=== PATIENT | female | born 1945 | race Caucasian/White ===

== ENCOUNTER 2016-06-16 16:11 | Emergency (ER) | payer MEDICARE ==
[~2016-06-16] VITALS: Ht 162.6 cm; Wt 64.0 kg
[~2016-06-16 16:11] MED LIST: ALBUTEROL2 PUFFS/17 IN; ASPIRIN 81MG TA81 MG PO; FLONASE 50 MCG16 GM; LIPITOR40 MG PO; LORAZEPAM1 MG/TABLE PO; NEURONTIN 100100 MG PO; PATADAY 2.5 ML2.5 ML OP; PATANASE0.6% NS; SYNTHROID0.025 MG PO; TESSALON PERLE100 MG PO
--- NOTE | 2016-06-16 16:31 | Emergency Room Report ---
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 Clinical Suspician of Infection? Mental Status: Sepsis Risk: Have you (or family members/close friends) recently traveled outside the [place]? If Yes, where/when: Have you had exposure to infectious disease within the past month? TB? Other? Specify: Vomiting and diarrhea for three days, dry heaves, some relief with Phenergan this afternoon. Mouth feels dry. Overall weak and exhausted, no fever. No blood from above or below; has cramping but no keara pain; hx of choly. Experiencing chills and myalgias. ALLERGIES Coded Allergies: acetaminophen (NAUSEA/VOMITING 05/05/15) hyoscyamine (I-RASH 05/05/15) menthol (NA-NAUSEA 05/05/15) methyl salicylate (NA-NAUSEA 05/05/15) Home Medications Reported Medications Atorvastatin Calcium (Atorvastatin) 40 MG PO DAILY ASPIRIN (Aspirin) 81 MG PO DAILY Omeprazole (Omeprazole 40MG) 40 MG PO DAILY #30 Levothyroxine Sodium (Synthroid 0.025MG) 0.0125 MG PO DAILY History Medical History General Angina: No DE: No Hypertension? No Hyperlipidemia? No CHF? No COPD? No Asthma? No CVA? No Seizures? No Diabetes? No GB Disease: No MRSA? No TB? No Cancer? No Immunization Hx DT/Tetanus 1-4 YRS Surgical Hx Previous Surgery?Y Tubal Ligation PARTIAL HYSTERECTOMY GALLBLADDER Family History Family Hx Diabetes No CAD Yes Hypertension Yes Hyperlipidemia No Cancer Yes TB Yes Social History Alcohol Alcohol: No Review of Systems All Other Systems Reviewed and Negative Gastrointestinal see HPI Physical Exam Vital Signs Vital Signs Date Time Temp Pulse Resp B/P Pulse O2 O2 Flow FiO2 Ox Delivery Rate 06/16 1616 98.8 96 20 126/73 98 General Appearance normal appearance, WD/WN, no apparent distress Eye Exam - bilateral eye normal exam, bilateral eye PERRL Ear, Nose, Throat hearing grossly normal, normal ENT inspection Neck normal inspection, non-tender, supple, full range of motion Respiratory Status Yes: trachea midline, chest symmetrical, non tender chest, non productive cough. No: respiratory distress, tender on palpation, use of accessory muscles, pain on inspiration, pain on expiration, productive cough. Lung Sounds bilateral: normal breath sounds, lungs clear. Cardiovascular normal exam, regular rate/rhythm, no peripheral edema, no gallop, no JVD, no murmur, no rub, normal peripheral pulses Gastrointestinal normal bowel sounds, normal exam, non tender, soft, no organomegaly, no guarding, no rebound Extremities non-tender, normal range of motion, normal inspection Neurologic alert, normal exam, no motor/sensory deficits, oriented x 3 Skin intact, normal color, warm/dry Lymphatic no adenopathy Medical Decision Making LABS/Meds/Orders Pt receiving controlled substance in ED? No Results/Orders Laboratory Tests 06/16/16 1710: Urine Color YELLOW, Urine Appearance CLEAR, Urine pH 6.0, Ur Specific [place] 1.025, Urine Protein NEGATIVE, Urine Ketones NEGATIVE, Urine Blood NEGATIVE, Urine Nitrate NEGATIVE, Urine Bilirubin NEGATIVE, Urine Urobilinogen 0.2, Ur Leukocyte Esterase TRACE H, Urine RBC NONE, Urine WBC 3-5, Ur Squamous Epith Cells 3-5, Urine Bacteria 1+, Urine Mucus 3+, Urine Other TRANS. EPI = OCC, Urine Glucose NEGATIVE 06/16/16 1705: Influenza Type A Ag DETECTED H, Influenza Type B Ag NOT DETECTED 06/16/16 1630: Sodium 141, Potassium 3.9, Chloride 106, Carbon Dioxide 27, BUN 16, Creatinine 1.1 H, Estimated Creat Clear 49 L, Estimated GFR (MDRD) 49 L, Glucose 104, Calcium 8.9, Total Bilirubin 0.2, AST 59 H, ALT 66, Alkaline Phosphatase 97, Total Protein 7.2, Albumin 3.3 L, Globulin 3.9 H, Albumin/Globulin Ratio 0.8 L, WBC 6.5, RBC 5.18, Hgb 14.0, Hct 42.2, MCV 81.5 L, RDW 14.5, Plt Count 228, MPV 8.5, Gran % 71.2, Gran # 4.6, Lymphocytes % 21.3, Monocytes % 6.6, Eosinophils % 0.5, Basophils % 0.4, Lymphocytes # 1.4, Monocytes # 0.4, Eosinophils # 0.0, Basophils # 0.0, PUBS MCHC 33.2, MCH 27.1 Current Medication Orders Sig/Yessi Start time Last Medication Dose Route Stop Time Status Admin Lactated Ringer's 1,000 ML .STK-MED ONE 06/16 1635 DC IV Ondansetron HCl 0 .STK-MED ONE 06/16 1635 DC .ROUTE Lactated Ringer's 1,000 ML .Q1H1M 06/16 1630 DC 06/16 IV 06/16 1730 1638 Ondansetron HCl 4 MG ONCE ONE 06/16 1630 DC 06/16 IV 06/16 1631 1638 Sodium Chloride 10 ML PRN PRN 06/16 1630 AC IV 06/17 1625 Sodium Chloride 10 ML PRN PRN 06/16 1630 AC IV 06/17 1625 Orders Procedure Date/time Status CHEST-PORTABLE 06/16 1717 Active URINALYSIS/COMPLETE 06/16 1704 Complete INFLUENZA A&B ANTIGENS 06/16 1704 Complete IV SALINE LOCK 06/16 1627 Active CBC WITH AUTO DIFF 06/16 1627 Complete CHEM 12 PROFILE 06/16 1627 Complete XRAY/CT/US XRAY/CT/US XRAY chest XR interpretation by reviewed by me Xray Results no infiltrates, normal heart size, normal lung inflation evelia Progress ED Progress Notes Date 06/16/16 Time 1704 Comment Waiting for urine specimen. No nausea now. Skin turgor is improved. Departure Departure Time of Disposition 1749 Disposition DC Home or Self Care(routine) Clinical Impression Primary Impression: Influenza A Secondary Impressions: Vomiting and diarrhea Condition STABLE Patient Instructions Influenza Additional Instructions Push fluids, Rx Zofran, rest, see your family doctor in two to four days as needed. Discharge Counseling Counseled pt/family regarding diagnosis, test results, medications/RX, home care, follow up needs (too late for Tamiflu) Prescriptions Current Visit Scripts Ondansetron (Zofran 4MG Odt) 4 MG PO Q6HP PRN NAUSEA AND VOMITING #6 ODT ED Critical Care Critical Care No at 1751
[2016-06-16] MEDS ORDERED: OMEPRAZOLE40 MG PO (16:33)
[2016-06-16 16:48] LABS: LYMPH # 1.4 K/mm3 (0.7-4.5); LYMPH % 21.3 % (10-50.0)
[2016-06-16 17:18] LABS: URINE BILIRUBIN - DIPSTICK NEGATIVE (NEG); URINE BLOOD NEGATIVE (NEG)
[2016-06-16] MEDS ORDERED: ZOFRAN ODT4 MG PO (17:51)
[2016-06-16 18:02] VITALS: BP 146/84
--- NOTE | 2016-06-17 10:49 | RADIOLOGY REPORT PS360 ---
CHEST-PORTABLE HISTORY: Cough with chills vomiting and diarrhea chills ORDERING PHYSICIAN: Dulce Kirkpatrick MD PATIENT AGE: 71 years COMPARISON: 08/19/2013 FINDINGS: The cardiomediastinal silhouette and pulmonary vascularity are within normal limits. The lungs are clear without infiltrates, suspicious nodules, or pleural effusions. No acute bony abnormalities. IMPRESSION: Negative chest, no acute finding
== END 2016-06-16 18:03 | disposition home or self-care (01) ==
LOC: ER 16:11
PROVIDERS: Emergency Medicine
DX: J10.1 Influenza due to other identified influenza virus with other respiratory manifestations (principal)
CPT/HCPCS: J2405

== ENCOUNTER → 2016-11-14 | Outpatient (CLI) | payer MEDICARE ==
[~2016-11-14] MED LIST changes: +OMEPRAZOLE40 MG PO; +ZOFRAN ODT4 MG PO
== END ==
LOC: RT 16:04
DX: R42 Dizziness and giddiness (principal)

== ENCOUNTER 2017-03-29 17:04 | Emergency (ER) | payer MEDICARE ==
[~2017-03-29] VITALS: Ht 162.6 cm; Wt 64.0 kg
[~2017-03-29 17:04] MED LIST changes: +CITALOPRAM HYDR10 MG PO; +DIAZEPAM2 M1 PO
--- OUTSIDE RECORDS SUMMARY | 2017-03-29 17:13 | External Medical Summary Rpt | CCD ---
Author Author , TYRONE HANSEN Address Unknown Phone [email or web address] Purpose Continuity of Care Document - through 2016 Problems Code Diagnosis DOS Provider Status J10.1 FLU DUE TO OTH IDENT INFLUENZA VIRUS W OTH RESP MANIFEST R11.10 VOMITING, UNSPECIFIED
--- OUTSIDE RECORDS SUMMARY | 2017-03-29 17:13 | External Medical Summary Rpt | CCD ---
Author Author , TYRONE HANSEN Address Unknown Phone [email or web address] Purpose Continuity of Care Document - through 2016 Problems Code Diagnosis DOS Provider Status J10.1 FLU DUE TO OTH IDENT INFLUENZA VIRUS W OTH RESP MANIFEST R11.10 VOMITING, UNSPECIFIED
--- OUTSIDE RECORDS SUMMARY | 2017-03-29 17:14 | External Medical Summary Rpt | CCD ---
Author Author [employer] Address Unknown Phone Unavailable Purpose Continuity of Care Document - through 2016
--- OUTSIDE RECORDS SUMMARY | 2017-03-29 17:15 | External Medical Summary Rpt | CCD ---
Demographics Preferred Language Telugu Marital Status Unknown Buddhism Affiliation Unknown Race Unknown Ethnic Group Unknown Author Author , TYRONE HANSEN Address Unknown Phone Immunization Unable to retrieve immunization data due to connection failure with Immunization Registry. Please try again later.
--- OUTSIDE RECORDS SUMMARY | 2017-03-29 17:15 | External Medical Summary Rpt ---
Author Author [employer]YRONE Mock, [employer] Organization [employer] Address Unknown Phone Unavailable
--- OUTSIDE RECORDS SUMMARY | 2017-03-29 17:15 | External Medical Summary Rpt | CCD ---
Demographics Preferred Language Yoruba Marital Status Unknown Jewish Affiliation Unknown Race Unknown Ethnic Group Unknown Author Author , TYRONE HANSEN Address Unknown Phone Immunization Unable to retrieve immunization data due to connection failure with Immunization Registry. Please try again later.
--- NOTE | 2017-03-29 17:17 | Urgent Treatment Center Report ---
History of Present Issue Date/Time Seen by Provider 03/29/17 4036 Visit Reason Pt arrived:Walked Presenting Problem:COUGH, CONGESTION Location if Accident: Onset of symptoms date/time:/ or onset unknown for:MEDICAL HX UNKNOWN Have you (or family members/close friends) recently traveled outside the [place]? N If Yes, where/when: Have you had exposure to infectious disease within the past month? TB? Other? Specify: Patient state that two of her grandaughters that live with her recently had strep throat State that she woke up this morning with sorethroat, cough and sinus pain and congestion State that she was worried that she may have strep throat so she wanted to come in and get checked ALLERGIES Coded Allergies: acetaminophen (NAUSEA/VOMITING 05/05/15) hyoscyamine (I-RASH 05/05/15) menthol (NA-NAUSEA 05/05/15) methyl salicylate (NA-NAUSEA 05/05/15) Home Medications Active Scripts Ondansetron (Zofran 4MG Odt) 4 MG PO Q6HP PRN NAUSEA AND VOMITING #6 ODT Prov: 06/16/16 Reported Medications Atorvastatin Calcium (Atorvastatin) 40 MG PO DAILY ASPIRIN (Aspirin) 81 MG PO DAILY Omeprazole (Omeprazole 40MG) 40 MG PO DAILY #30 Diazepam 2 MG PO BID #90 Citalopram Hydrobromide (Citalopram HBr) 10 MG PO DAILY #30 Levothyroxine Sodium (Synthroid 0.025MG) 0.0125 MG PO DAILY History Medical History General CAD? No Angina: No GA: No Hypertension? No Hyperlipidemia? No CHF? No DVT? No PE? No COPD? No Asthma? No Anemia? No GERD? No Gastric ulcers? No GI Bleed? No Hernia? No Thyroid Problems? No Hypothyroidism? No CVA? No Seizures? No Diabetes? No Renal Insuffiency? No UTI? No Stones? No GB Disease: No Nephritic Syndrome? No Asplenia? No Hepatitis? No Sickle Cell Disease? No Arthritis? Yes Migraines? No Cataracts? No Glaucoma? No MRSA? No HIV? No TB? No Anxiety? No Depression? No Cancer? No More? Yes Additional hx: FIBROMYALGIA Immunization HX DT/Tetanus Unknown Surgical Hx Previous Surgery?Y Tubal Ligation PARTIAL HYSTERECTOMY GALLBLADDER HERNIA REPAIR Family History Family HX Diabetes No CAD Yes Hypertension Yes Hyperlipidemia No Cancer Yes TB Yes Social History Smoking Hx Smoker: Never Smoker Tobacco: No Alcohol Alcohol: No Review of Systems All Other Systems Reviewed and Negative ENT nose discharge, nose congestion, throat pain, throat swelling. Respiratory cough Physical Exam Vital Signs Vital Signs Date Time Temp Pulse Resp B/P Pulse O2 O2 Flow FiO2 Ox Delivery Rate 03/29 1707 98.4 71 20 115/76 100 General Appearance normal appearance, WD/WN, no apparent distress Ear, Nose, Throat sinus pain/drainage, nasal congestion, Throat red, irritated drainage noted, tenderness over maxillary sinus Respiratory Status Yes: trachea midline, chest symmetrical, non tender chest. No: respiratory distress. Lung Sounds bilateral: normal breath sounds, lungs clear. Cardiovascular normal exam, regular rate/rhythm Neurologic alert, normal exam, oriented x 3 Medical Decision Making LABS/Meds/Orders Pt receiving controlled substance in ED? No Results/Orders Laboratory Tests 03/29/17 1735: Group A Strep Screen NOT DETECTED Orders Procedure Date/time Status [facility] STREP SCREEN 03/29 173 Complete Departure Departure Time of Disposition 173 Disposition DC Home or Self Care(routine) Clinical Impression Primary Impression: Upper respiratory infection Qualifiers: URI type: unspecified URI Qualified Code: J06.9 - Acute upper respiratory infection, unspecified Condition STABLE Referrals Bobbi Ramon MD (Family): 3 Days-Call Office If no improvement or worsening of symptoms Patient Instructions DI for Cough -- Adult, DI for Nasal Congestion Additional Instructions * Monitor Temp. Tylenol and/or Ibuprofen as needed. ER if fever is no less than 101 despite alternating Tylenol and Ibuprofen * Encourage fluids, water, Gatorade, powerade, pedialyte if /toddler/or child * Warm salt water gargles for throat irritation *Warm fluids *Sore throat lozenges *Sleep elevated *humidifier or vaporizer Lots of rest Increase fluids, water, Gatorade, powerade Discharge Counseling Counseled pt/family regarding diagnosis, test results, medications/RX, home care, follow up needs Prescriptions Current Visit Scripts Azithromycin (Zithromycin (Z-MIKEY) 250MG Tab) 250 MG PO DAILY #6 TAB TAKE TWO (2) TABLETS ON DAY 1, THEN ONE (1) TABLET DAY #2 THRU #5 Fluticasone Propionate (Flonase 50 Mcg Nasal [place]) 2 SPRAY NA DAILY #1 BOT Methylprednisolone (Medrol Dose Mikey) 4 MG PO UD #1 MIKEY TAKE DIRECTED ON PACKAGING Albuterol Sulfate (Proair Hfa) 2 PUFFS IH Q6HP PRN soa #1 INH Benzonatate (Tessalon Perle) 100 MG PO TID #15 SGL at 4319
[2017-03-29] MEDS ORDERED: ZITHROMAX Z PA250 MG PO (17:37)
[2017-03-29] MEDS ORDERED: PROAIR HFA0.09 MG/AC IH (17:37)
[2017-03-29] MEDS ORDERED: FLONASE 50 MCG16 GM (17:37)
[2017-03-29] MEDS ORDERED: TESSALON PERLE100 M1 PO (17:37)
[2017-03-29] MEDS ORDERED: MEDROL 4MG. DOSE4 MG PO (17:37)
[2017-03-29 17:47] VITALS: BP 122/78
== END 2017-03-29 17:49 | disposition home or self-care (01) ==
LOC: UTC 17:04
DX: J06.9 Acute upper respiratory infection, unspecified (principal); Z79.82 Long term (current) use of aspirin